=== PATIENT | female | born 1965 | race Caucasian/White ===

== ENCOUNTER 2017-02-09 11:07 | Emergency (ER) | payer BC ==
[~2017-02-09] VITALS: Ht 167.6 cm; Wt 57.5 kg
[~2017-02-09 11:07] MED LIST: FIORICET,ESG1 TABLET PO; MOTRIN800 MG PO; NOHOMEMEDS
[2017-02-09] MEDS ORDERED: CYCLOBENZAPRINE5 MG PO (12:23)
[2017-02-09] MEDS ORDERED: PREDNISONE10 MG PO (12:32)
[2017-02-09] MEDS ORDERED: ULTRAM50 MG PO (12:32)
[2017-02-09] MEDS ORDERED: SOMA350 MG PO (12:32)
[2017-02-09 12:59] VITALS: BP 183/89
== END 2017-02-09 12:59 | disposition home or self-care (01) ==
LOC: EME 11:07 → RME 11:07
DX: M54.5 Low back pain (principal)
CPT/HCPCS: 99281; 99283; J1100; J1885